=== PATIENT | female | born 1995 | race Caucasian/White ===

== ENCOUNTER 2018-01-12 12:30 | Emergency (ER) | payer OTHER ==
[~2018-01-12] VITALS: Ht 172.7 cm; Wt 72.5 kg
[2018-01-12 12:41] VITALS: BP 140/83; PULSE 68; RESP 16; TEMP 97.8; O2SAT 100
[2018-01-12 12:44] VITALS: BP 140/83; PULSE 68; RESP 18; TEMP 97.8; O2SAT 100
[2018-01-12] MEDS ORDERED: LOPERAMIDE HCL 2 MG CAP PO ONE (12:45)
[2018-01-12] MEDS ORDERED: ONDANSETRON HCL 4 MG/2 ML VIAL IV ONE (12:45)
[2018-01-12] MEDS ORDERED: SODIUM CHLOR 0.9% 1000 ML INJ 1,000 ML IV ONE ×2 (12:45)
[2018-01-12] MEDS ORDERED: ONDA4TAB7 SL (12:47)
--- NOTE | 2018-01-12 12:47 | PD ---
HPI Chief Complaint: GI Complaint Time Seen by Provider: 12:39 Travel History International Travel<30 days: No Contact w/Intl Traveler<30days: No History of Present Illness HPI Is a 22-year-old woman who presents emerged from claim nausea vomiting diarrhea starting today. States she drank a lot of alcohol last night when she is hung over. She had a sensitive GI systems and she spent time in [place] and often gets diarrhea. She took Imodium today but threw it up. She otherwise had been feeling generally well. No fevers. No other complaints. History Past Medical History Narrative Medical Asthma Social History Tobacco Use: No Allergies-Medications (Allergen,Severity, Reaction): Coded Allergies: Sulfa (Sulfonamide Antibiotics) (Verified Allergy, Unknown, 01/12/18) zolpidem (Verified Allergy, Unknown, 01/12/18) Reported Meds & Prescriptions Reported Meds & Active Scripts Active Ondansetron Odt 4 Mg Tab 4 Mg SL Q8HR PRN Review of Systems Except as stated in HPI: all other systems reviewed are Neg Physical Exam Narrative GENERAL: 22-year-old woman, no acute distress. SKIN: Focused skin assessment warm/dry. HEAD: Atraumatic. Normocephalic. EYES: Pupils equal and round. No scleral icterus. No injection or drainage. ENT: No nasal bleeding or discharge. Mucous membranes pink and moist. NECK: Trachea midline. No JVD. CARDIOVASCULAR: Regular rate and rhythm. No murmur appreciated. RESPIRATORY: No accessory muscle use. Clear to auscultation. Breath sounds equal bilaterally. GASTROINTESTINAL: Abdomen soft, non-tender, nondistended. Hepatic and splenic margins not palpable. MUSCULOSKELETAL: No obvious deformities. No clubbing. No cyanosis. No edema. NEUROLOGICAL: Awake and alert. No obvious cranial nerve deficits. Motor grossly within normal limits. Normal speech. PSYCHIATRIC: Appropriate mood and affect; insight and judgment normal. Data Data Last Documented VS Vital Signs Date Time Temp Pulse Resp B/P (MAP) Pulse Ox O2 Delivery O2 Flow Rate FiO2 01/12/18 12:44 97.8 68 18 140/83 (102) 100 Room Air Orders Orders Ondansetron Inj (Zofran Inj) (01/12/18 12:45) Loperamide (Imodium) (01/12/18 12:45) Sodium Chlor 0.9% 1000 Ml Inj (Ns 1000 M (01/12/18 12:45) Iv Access Insert/Monitor (01/12/18 12:40) Sodium Chlor 0.9% 1000 Ml Inj (Ns 1000 M (01/12/18 12:45) MDM Medical Decision Making Medical Screen Exam Complete: Yes Emergency Medical Condition: Yes Differential Diagnosis Hangover, gastroenteritis, vomiting, infection, other Narrative Course Medical decision making Is a 22 (of with nausea vomiting in the setting of heavy alcohol use last night. States she often gets diarrhea. No other infectious contacts. Otherwise looks well. Benign exam. Recommend supportive treatment. Diagnosis Primary Impression: Hangover Additional Instructions: Use Zofran if needed for nausea or vomiting. Continue Imodium if needed. Drink plenty fluids stay well-hydrated. Drink alcohol only in moderation. Med/Other Pt SpecificInfo: Prescription(s) given Scripts Ondansetron Odt (Ondansetron Odt) 4 Mg Tab 4 MG SL Q8HR Y for Nausea/Vomiting, #15 TAB 0 Refills Prov: Harjit Walton MD 01/12/18 Disposition: 01 DISCHARGE HOME Condition: Stable Harjit Walton MD Jan 12, 2018 12:47
== END 2018-01-12 14:42 | disposition home or self-care (01) ==
LOC: NEPD 12:30
DX: F10.129 Alcohol abuse with intoxication, unspecified (principal); R11.2 Nausea with vomiting, unspecified; R19.7 Diarrhea, unspecified; J45.909 Unspecified asthma, uncomplicated
CPT/HCPCS: 96361; 96374; 99284; J2405; J7030